=== PATIENT | female | born 1970 | race Two or more races ===

== ENCOUNTER 2025-04-30 21:01 | Emergency (ER) | payer OTHER, SELFPAY ==
[2025-04-30 21:02] VITALS: BMI 30.4
[2025-04-30 22:01] LABS: Collection Type, Urine Clean Catch
[2025-04-30 22:12] VITALS: BP 128/77; PULSE 71; RESP 18; TEMP 36.8; O2SAT 99
[2025-04-30 22:14] LABS: HCG Qualitative,Urine Negative
[2025-04-30 22:16] LABS: Bacteria,Urine Rare; Bilirubin,Urine Negative (Negative); Blood,Urine 3+ (Negative); Clarity,Urine Clear (Clear/Hazy); Color,Urine Lt-Yellow (Lt Yel-Yel); Glucose, Urine Negative (Negative); Ketones,Urine Negative (Negative); Leukocyte Esterase,Urine Positive (Negative); Nitrite,Urine Negative (Negative); PH,Urine 6.5 (5.0-7.0); Protein,Urine Negative (Neg - Trace); RBC,Urine 4 /hpf (0-3); Specific Gravity,Urine 1.005 (1.001-1.035); Squamous Epithelial Cell,Urine 1 /hpf (0-5); Urobilinogen,Urine Negative mg/dL (0.0-1.0); WBC,Urine 86 /hpf (0-5)
[2025-04-30 22:18] LABS: Culture Indicated,Urine Yes
[2025-04-30 22:21] LABS: Amphetamine/Methamp Scrn,U Negative (Negative); Barbiturate Screen,Urine Negative (Negative); Benzodiazepines Screen,Urine Negative (Negative); Benzoylecgonine Screen, Ur Negative (Negative); Fentanyl Screen,Urine Negative (Negative); Opiate Screen,Urine Negative (Negative); THC Screen,Urine Negative (Negative)
--- NOTE | 2025-04-30 22:23 | PD.EDFMALE ---
ED Female Urogenital RME/HPI General Chief complaint: Urogenital-Female Stated complaint: BLADDER INFECTION Time Seen by Provider: 04/30/25 22:17 Arrival date/time: 04/30/25 21:01 54F with no significant PMH presents to ED with several days of dysuria. Patient denies vaginal bleeding and flank pain. Patient gave herself a dose of Rocephin she got from [place]. Limitations: no limitations Related Data Home Medications ?Medication ?Instructions ?Recorded ?Confirmed alprazolam 0.25 mg tablet 0.25 mg PO BID #0 tabs 02/17/15 ferrous sulfate 220 mg (44 mg 5 ml PO BID ##150 02/17/15 iron)/5 mL oral solution loratadine 10 mg tablet (Claritin) 10 mg PO QDAY #0 tabs 02/17/15 Previous Rx's ?Medication ?Instructions ?Recorded cefuroxime axetil 500 mg tablet 500 mg PO BID 7 days #14 tabs 04/30/25 Allergies Allergy/AdvReac Type Severity Reaction Status Date / Time Sulfa (Sulfonamide Allergy Unknown Anaphylaxis Verified 04/30/25 21:02 Antibiotics) Neuromuscular Blockers, AdvReac Unknown VISUAL Verified 04/30/25 21:02 Steroidal PROBLEMS Review of Systems Review of Systems Systems Reviewed: All systems reviewed, normal except as documented Genitourinary Genitourinary: Reports as per HPI and Reports dysuria Past Medical History Social History SMOKING STATUS: Never smoker ED Exam General Limitations: Present no limitations General appearance: Present alert and in no apparent distress Head Head exam: Present atraumatic Neck Neck exam: Present normal inspection, full ROM and trachea midline Chest Chest inspection: Present normal inspection and symmetric chest wall rise Neurological Exam Neurological exam: Present alert and oriented X3 Psychiatric Psychiatric exam: Present normal affect and normal mood Skin Skin exam: Present warm, dry, intact and normal color Course Quality Measures none Orders Category Date Time Status Drug Screen,Urine Stat Lab 04/30/25 21:43 Completed HCG Qualitative,Urine Stat Lab 04/30/25 21:43 Completed Urinalysis, C/S if Indicated Stat Lab 04/30/25 21:43 Completed Urine Culture Stat Lab 04/30/25 21:43 Received Naproxen [Naprosyn] Med 04/30/25 22:17 Once 500 mg PO X1 ONE Vital Signs Vital signs: Vital Signs Temperature 98.2 F 04/30/25 22:12 Pulse Rate 71 04/30/25 22:12 Respiratory Rate 18 04/30/25 22:12 Blood Pressure 128/77 04/30/25 22:12 Pulse Oximetry (%) 99 04/30/25 22:12 Oxygen Delivery Method Room Air 04/30/25 22:12 O2 at 99% on RA and WNLs Urogenital - Female MDM Narrative MDM Narrative:: 54F with no significant PMH presents to ED with several days of dysuria. Patient denies vaginal bleeding and flank pain. Patient gave herself a dose of Rocephin she got from [place]. Physical exam reveals well-appearing female. Patient is afebrile, calm, and alert. HCG/tox screen neg. UA suggests UTI. Meds and school adjustment counselor given. Patient data External records reviewed:: [facility] previous records Clinical information provided by:: patient Social determinants that could affect healthcare access:: none Patient has the following chronic illnesses:: none How is presenting disease/condition affected by chronic disease/condition?: no chronic disease Evaluation data The following diagnostics were reviewed and interpreted by me:: lab results Lab and/or radiology exams considered but not ordered:: ordered Interpretation Summary: above Medications / Prescriptions Medications or Prescriptions considered but not ordered:: ordered Medication administrations:: Medication Administration History Naproxen (Naproxen 250 Mg Tablet) 500 mg PO X1 ONE Stop: 04/30/25 22:18 above Consultations Consultation(s) initiated? (list below): No Diagnosis Urogenital Female Differential Diagnosis: urinary tract infection, bacterial vaginosis, trichomoniasis, cervicitis, ovarian cyst, vaginitis, ruptured ovarian cyst, cyst of Bartholin's gland, cystitis and dysmenorrhea Most likely diagnosis given after review of the tests above:: UTI Admission Indicated Admission indicated?: not indicated Admission Request Was there a request for admission?: No Disposition Plan Disposition Plan: Discharge Discharge Attestation Discharge Attestation: The patient and all family members were given an opportunity to ask questions and understood the discharge instructions. Discharge instructions specifically effects, indications for sooner follow up or return to the emergency department, and the expected course of current diagnosis. Patient condition: Stable Discharge Plan Plan Patient Disposition: HOME (Self Care) Discharge Disposition comment: Stable Prescriptions/Referrals Prescriptions/Med Rec: New cefuroxime axetil 500 mg tablet 500 mg PO BID 7 Days Qty: 14 0RF No Action alprazolam 0.25 MG tablet 0.25 mg PO BID Qty: 0 loratadine [Claritin] 10 MG tablet 10 mg PO QDAY Qty: 0 ferrous sulfate 220 MG/5 ML elixir 5 ml PO BID Qty: 150 Problem List Clinical Impression: Urinary tract infection Patient/Caregiver Discharge Instructions Education Materials: ED CYSTITIS Female Adult Additional Instructions: Please follow-up with PCP within 24-48 hours and return immediately if symptoms worsen. NSAIDs like ibuprofen tend to work better for this type of pain. Print Language: Ghanaian Stand Alone Forms: Patient Portal Info Letter PA/CASKET TRIMMER Supervising Physician PA/CASKET TRIMMER Supervising Physician: Dr. Mena
[2025-04-30] MEDS: NAPROXEN 250 MG TABLET 500 MG PO (22:55)
== END 2025-04-30 22:58 | disposition home or self-care (01) ==
LOC: SERX 22:35
PROVIDERS: Physician Assistant; Emergency Provider Emergency Medicine; PCP Family Medicine
DX: N39.0 Urinary tract infection, site not specified (principal)
CPT/HCPCS: 80307; 81001; 81025; 87086; 99282; A9270